=== PATIENT | female | born 1995 | race Caucasian/White ===

== ENCOUNTER → 2018-05-25 13:25 | Outpatient (CLI) | payer BC, SELFPAY ==
[2018-05-25 14:03] LABS: Basophils # 0.1 K/mm3 (0-0.2); Basophils % 0.6 % (0.1-2.0); Eosinophils # 0.2 K/mm3 (0.0-0.4); Eosinophils % 1.5 % (0.1-12.0); Hematocrit 43.2 % (37.0-47.0); Hemoglobin 14.6 g/dL (12.2-16.2); Lymphocytes % 20.2 K/mm3 (10-50); Mean Corpuscular HGB Conc 33.9 g/dL (31.8-35.4); Mean Corpuscular Hemoglobin 30.5 pg (27.0-31.2); Mean Platelet Volume 7.6 fl (7.4-10.4); Monocytes # 0.6 K/mm3 (0.1-1.0); Monocytes % 5.7 % (1.7-9.3); Neutrophils # 7.2 K/mm3 (1.8-7.8); Platelet Count 319 K/mm3 (142-424); Red Blood Count 4.79 M/mm3 (4.20-5.40); Red Cell Distribution Width 12.7 % (11.5-17.5)
[2018-05-25 14:29] LABS: Anion Gap 14.2 mEq/L (5-15); Blood Urea Nitrogen 13 mg/dL (7-18); Calcium 9.6 mg/dL (8.5-10.1); Carbon Dioxide 26 mmol/L (21.0-32.0); Chloride 102 mmol/L (98-107); Creatinine,Serum 0.81 mg/dL (0.55-1.02); Estimated Glomerular Filt Rate 87 ml/min (>60); GFR (African American) 105 ML/MIN (>60); Glucose 90 mg/dL (74-106); Potassium 4.2 mmoL/L (3.5-5.1); Sodium 138 mmol/L (136-145)
[2018-05-25 15:30] LABS: HCG Qualitative, Serum Negative (Negative)
== END ==
PROVIDERS: PCP Obstetrics & Gynecology; Visit Provider Surgery
DX: L02.411 Cutaneous abscess of right axilla (principal)
CPT/HCPCS: 36415; 80048; 84703; 85025

== ENCOUNTER 2018-06-02 13:53 | Outpatient (CLI) | payer BC, SELFPAY ==
--- NOTE | 2018-06-02 16:26 | PC.NURSE ---
PT HAS BEEN DOING WET TO DRY DRESSING CHANGES AT HOME USING NS. DR VALDEZ WISHES TO CHANGE NS TO DAKINS SOLUTION AND FOR PT TO HAVE FIRST DRESSING CHANGE DONE HERE THEN MAY RESUME DRESSING CHANGES AT HOME. ALSO REQUESTED THAT NO TAPE BE USED TO HOLD DRESSING IN PLACE SURROUNDING AXILLARY AREA IS RED AND IRRITATED FROM TAPE. IRRIGATED WOUND WITH DAKINS, PACKED WITH 2 INCH STRETCH BANDAGE THAT WAS MOISTENED WITH DAKINS, COVERED WITH DRY 4X4'S, AND HELD IN PLACE USING COFLEX. DRESSING SUPPLIES SENT HOME WITH PT TO PERFORM WOUND CARE AT HOME.
== END 2018-06-02 14:30 | disposition home or self-care (01) ==
PROVIDERS: Visit Provider Surgery
DX: L02.411 Cutaneous abscess of right axilla (principal)
CPT/HCPCS: G0463

== ENCOUNTER → 2018-07-08 11:07 | Outpatient (CLI) | payer BC, SELFPAY ==
[2018-07-08 12:43] LABS: HCG,Quantitative 0 mIU/mL
== END ==
PROVIDERS: Visit Provider Obstetrics & Gynecology
DX: Z32.00 Encounter for pregnancy test, result unknown (principal); R19.8 Other specified symptoms and signs involving the digestive system and abdomen; R10.2 Pelvic and perineal pain
CPT/HCPCS: 36415; 84702

== ENCOUNTER → 2018-07-14 15:28 | Outpatient (CLI) | payer BC, SELFPAY ==
--- NOTE | 2018-07-14 15:29 | US_ITS ---
US transvaginal HISTORY: Right lower quadrant pain ITS.REASON: US T/V- RLQP ORDERING PHYSICIAN: Coco Cassidy MD PATIENT AGE: 23 years Comparison: None Last menstrual period: 05/24/2018 FINDINGS: The uterus is 9.2 x 3.9 x 4.2 cm with a combined endometrial thickness of 7 mm. Uterus has an unremarkable appearance. The left ovary is 3.6 x 2.6 cm and contains multiple small follicles. The right ovary measures 3.6 x 2.6 cm containing small follicles along with a 17 x 14 mm follicular cyst. No cul-de-sac fluid evident. IMPRESSION: Essentially unremarkable pelvic ultrasound with small bilateral ovarian follicles and a 17 mm right follicular cyst No cul-de-sac fluid evident
== END ==
PROVIDERS: Visit Provider Obstetrics & Gynecology
DX: R10.31 Right lower quadrant pain (principal)
CPT/HCPCS: 76830

== ENCOUNTER → 2019-01-03 09:20 | Outpatient (CLI) | payer BC, SELFPAY ==
[2019-01-03 10:32] LABS: HCG Qualitative, Serum Negative (Negative)
== END ==
PROVIDERS: Visit Provider Surgery
DX: L02.411 Cutaneous abscess of right axilla (principal)
CPT/HCPCS: 36415; 84703